=== PATIENT | male | born 1980 | race Caucasian/White ===

== ENCOUNTER 2016-07-28 22:00 | Emergency (ER) | payer SELFPAY ==
[~2016-07-28] VITALS: Ht 182.9 cm; Wt 79.4 kg
--- NOTE | 2016-07-28 22:00 | NUR ---
MD Dr. Steward examining patient in chair in [facility].
[2016-07-28 22:05] VITALS: BP 120/73; PULSE 97; RESP 16; TEMP 97.6; O2SAT 98
--- NOTE | 2016-07-28 22:05 | NUR ---
Placed in room H1 . Report given to DENZEL Yoon.
--- NOTE | 2016-07-28 22:10 | NUR ---
Patient brought in by divorce lawyer Beti ID# [id number], for medical clearance. Patient AAO x4, sitting in chair, hands cuffed behind back: skin intact. Patient c/o bilateral lower leg swelling. No lower leg swelling present at this time, skin intact. No acute acute distress noted. Will continue to monitor.
[2016-07-28 22:30] VITALS: BP 120/73; PULSE 90; RESP 16; TEMP 97.6; O2SAT 98
--- NOTE | 2016-07-28 22:30 | NUR ---
Patient refused to sign discharge papers, Patient received medical clearance from . Officer at patient side. Vital signs stable, discharge papers given to Officer, patient left ED in law enforcement custody, able to ambulate without assistance, AAO x4, in no acute distress.
== END 2016-07-28 22:30 ==
LOC: SED 22:00
DX: Z02.89 Encounter for other administrative examinations (principal); J45.909 Unspecified asthma, uncomplicated; F17.200 Nicotine dependence, unspecified, uncomplicated
CPT/HCPCS: 99283